=== PATIENT | male | born 1990 | race Caucasian/White ===

== ENCOUNTER 2020-03-14 21:08 | Emergency (ER) | payer OTHER ==
[~2020-03-14] VITALS: Ht 175.3 cm; Wt 86.2 kg
[2020-03-14 21:10] VITALS: BP 130/79
== END 2020-03-14 22:00 | disposition home or self-care (01) ==
LOC: ER 21:08
DX: I83.92 Asymptomatic varicose veins of left lower extremity (principal); Z88.6 Allergy status to analgesic agent; Z88.8 Allergy status to other drugs, medicaments and biological substances